=== PATIENT | female | born 1975 | race Caucasian/White ===

== ENCOUNTER 2020-09-15 15:44 | Inpatient (IN) ==
[2020-09-15] MEDS ORDERED: methylPREDNISolone 125 MG/2 ML VIAL IV STA ×2 (17:42→20:19)
[2020-09-15] MEDS ORDERED: SODIUM CHLORIDE 0.9% 1000ML 1,000 ML IV SCH (17:45)
[2020-09-15] MEDS ORDERED: ALBUT/IPRATROP 3MG/0.5MG NEB 3 ML VIAL NEB STA (17:45)
[2020-09-15 18:29] LABS: Basophils # (auto) 0.01 K/uL (0-0.2); Basophils % (auto) 0.1 %; Hematocrit (blood only) 43.5 % (37-47); Hemoglobin 14.4 g/dL (12.0-16.0); Immature Granulocytes # (auto) 0.05 K/uL (0.00-0.02); Immature Granulocytes % (auto) 0.3 %; Lymphocytes # (auto) 1.14 K/uL (1.2-3.4); Lymphocytes % (auto) 6.3 %; Mean Corpuscular Hemoglobin 29.2 pg (25-34); Mean Corpuscular Hgb Conc 33.1 g/dL (32-36); Mean Corpuscular Volume 88.2 fL (80-100); Mean Platelet Volume 10.7 fL (7.4-10.4); Monocytes % (auto) 3.3 %; Neutrophils # (auto) 16.18 K/uL (1.4-6.5); Platelet Count 317 K/uL (130-400); RDW Standard Deviation 48.4 fL (36.4-46.3); Red Blood Count 4.93 M/uL (4.2-5.4); White Blood Count 17.98 K/uL (4.8-10.8)
[2020-09-15 18:38] LABS: Influenza A virus by PCR Negative (Negative); Influenza B virus by PCR Negative (Negative)
[2020-09-15] MEDS ORDERED: AMPICILLIN/SULBACTAM SOD 3,000 MG in 0.9 % SODIUM CHLORIDE 100 ML IV STA ×2 (18:42→20:16)
[2020-09-15 18:48] LABS: Albumin Level 3.2 gm/dl (3.4-5.0); BUN Creatinine Ratio 16.6 (10-20); Calcium 9.4 mg/dl (8.5-10.1); Creatinine Clr Calc Pharmacy 145.6 ml/min; Est GFR (African American) 104.8 ml/min; Est GFR (Non-African American) 90.4 ml/min; Magnesium 2.2 mg/dl (1.8-2.4); Potassium 4.1 mmol/L (3.5-5.1)
[2020-09-15 18:51] LABS: Albumin Globulin Ratio 0.7 (0.9-2); Bilirubin,Total 0.3 mg/dl (0.2-1); Globulin 4.3 gm/dl (2.5-4.0); Total Protein 7.5 gm/dl (6.4-8.2)
--- NOTE | 2020-09-15 19:10 | Emergency Department Note ---
History of Present Illness General Chief complaint: Shortness of Breath/Dyspnea Stated complaint: SOB, CT SCAN SHOWED INFECTION, SENT BY Time Seen by Provider: 09/15/20 17:40 History of Present Illness This 44-year-old female patient presents to the emergency department today at the recommendation of her primary care provider for admission to the hospital due to asthma exacerbation and consolidations noted on outpatient CT imaging. The patient states 2 days ago, she developed wheezing and shortness of breath. Her symptoms have been progressively worsening and she was seen at [facility] last evening. There, she had a chest x-ray completed as well as nebulizers and Decadron given. She was started on prednisone to be taken as an outpatient burst. The patient is already on Augmentin for the past 24 hours due to sinus infection. The patient reports ongoing wheezing and dyspnea. She saw her PCP today and had outpatient CT angiogram completed which was concerning for consolidation in the left upper lobe. Because of this finding, the patient was referred to the emergency department for "multiple doses of steroids they can give in the hospital but I cannot take at home since I am already on 60 mg prednisone". The patient does not have a nebulizer at home and has not noticed significant improvement in her wheezing and asthma exacerbations in the past with nebulizers. She has been taking all of her inhalers as directed. She denies associated chest pain. No numbness, tingling, weakness. Home Medications Medication Instructions Recorded Confirmed Type albuterol sulfate 90 mcg/actuation 2 puff INHALATION Q4H PRN gm 10/21/18 09/15/20 History aerosol inhaler amoxicillin 875 mg-potassium 1 tab PO BID 09/15/20 09/15/20 History clavulanate 125 mg tablet diclofenac sodium 75 mg 75 mg PO BID PRN 09/15/20 09/15/20 History tablet,delayed release duloxetine 60 mg capsule,delayed 60 mg PO DAILY 09/15/20 09/15/20 History release hydrochlorothiazide 25 mg tablet 25 mg PO DAILY 09/15/20 09/15/20 History mometasone-formoterol HFA 200 2 puff INHALATION BID 09/15/20 09/15/20 History mcg-5 mcg/actuation aerosol inhaler (Dulera) prednisone 20 mg tablet 60 mg PO DAILY 09/15/20 09/15/20 History tiotropium bromide 2.5 2 puff INHALATION DAILY 09/15/20 09/15/20 History mcg/actuation mist for inhalation (Spiriva Respimat) Allergies Allergy/AdvReac Type Severity Reaction Status Date / Time Penicillins AdvReac Intermediate NAUSEATED Verified 09/15/20 18:24 Past Med/Surg History Medical History Anxiety Asthma Depression GERD (gastroesophageal reflux disease) History of gestational diabetes History of varicella Hypertension Family History (Updated 05/15/19 @ 13:27 by Chandrika Duke, INTERFACE DEVELOPER) Mother Heart disease Cervical cancer Grandmother (Maternal) Breast cancer Social History Smoking Status: Current every day smoker Second Hand Exposure: Yes; Do You Dip or Chew Tobacco: No; Tobacco Cessation Education Requested by Patient: No Hx Alcohol Use: Yes Hx Substance Use: No Preferred Language: Frisian Communication Ability: Effective Watch Dial Maker Required: No Beliefs That Will Affect Care: None Current Living Situation: Family Other Information That Helps Us Care for You: No Feels Safe at Home: Yes Safety Concerns: Feels Safe At This Time Assistive Devices: None Review of Systems A total of 10 systems reviewed and were otherwise negative Physical Exam Vital Signs Vital Signs - 24 hr 09/15/20 15:50 09/15/20 15:57 09/15/20 18:16 Temperature 37.1 C Temperature Source Temporal Artery Scan Pulse Rate 96 H 89 Pulse Rate [Exercises] Pulse Rate [Recovery] Pulse Rate [Resting] Pulse Rate from SpO2 Sensor 89 Respiratory Rate 26 H 22 Respiratory Rate [Exercises] Respiratory Rate [Recovery] Respiratory Rate [Resting] Respiratory Effort / Characteristics SOB on Exertion Spontaneous SOB on Exertion Respiratory Depth Shallow Shallow Respiratory Pattern Tachypnea Tachypnea Blood Pressure 172/105 H 153/84 H Blood Pressure Mean 127 107 Pulse Oximetry 94 91 Pulse Oximetry [Exercises] Pulse Oximetry [Recovery] Pulse Oximetry [Resting] Oxygen Delivery Method Room Air Sepsis Recent Fever Within 48 Hours No Sepsis New/Unexplained Change in Mental Status No Sepsis Action Taken by Nursing No Action Required 09/15/20 18:20 09/15/20 18:21 09/15/20 18:30 Temperature Temperature Source Pulse Rate 86 Pulse Rate [Exercises] Pulse Rate [Recovery] Pulse Rate [Resting] Pulse Rate from SpO2 Sensor 88 Respiratory Rate 22 Respiratory Rate [Exercises] Respiratory Rate [Recovery] Respiratory Rate [Resting] Respiratory Effort / Characteristics Spontaneous Respiratory Depth Normal Respiratory Pattern Regular Blood Pressure 153/104 H Blood Pressure Mean 120 Pulse Oximetry 93 Pulse Oximetry [Exercises] Pulse Oximetry [Recovery] Pulse Oximetry [Resting] Oxygen Delivery Method Room Air Sepsis Recent Fever Within 48 Hours Sepsis New/Unexplained Change in Mental Status Sepsis Action Taken by Nursing 09/15/20 18:41 09/15/20 18:44 09/15/20 19:00 Temperature Temperature Source Pulse Rate 80 88 90 Pulse Rate [Exercises] Pulse Rate [Recovery] Pulse Rate [Resting] Pulse Rate from SpO2 Sensor 79 90 Respiratory Rate 16 22 17 Respiratory Rate [Exercises] Respiratory Rate [Recovery] Respiratory Rate [Resting] Respiratory Effort / Characteristics Respiratory Depth Respiratory Pattern Blood Pressure 161/107 H 161/107 H 169/102 H Blood Pressure Mean 125 125 124 Pulse Oximetry 94 93 94 Pulse Oximetry [Exercises] Pulse Oximetry [Recovery] Pulse Oximetry [Resting] Oxygen Delivery Method Room Air Sepsis Recent Fever Within 48 Hours Sepsis New/Unexplained Change in Mental Status Sepsis Action Taken by Nursing 09/15/20 19:06 09/15/20 19:14 09/15/20 19:30 Temperature Temperature Source Pulse Rate 106 H 88 Pulse Rate [Exercises] 116 H Pulse Rate [Recovery] 109 H Pulse Rate [Resting] 110 H Pulse Rate from SpO2 Sensor 100 H 88 Respiratory Rate 18 21 Respiratory Rate [Exercises] 20 Respiratory Rate [Recovery] 18 Respiratory Rate [Resting] 18 Respiratory Effort / Characteristics Respiratory Depth Respiratory Pattern Blood Pressure 148/112 H 137/81 Blood Pressure Mean 124 99 Pulse Oximetry 93 90 Pulse Oximetry [Exercises] 88 L Pulse Oximetry [Recovery] 95 Pulse Oximetry [Resting] 96 Oxygen Delivery Method Room Air Sepsis Recent Fever Within 48 Hours Sepsis New/Unexplained Change in Mental Status Sepsis Action Taken by Nursing 09/15/20 20:00 Temperature Temperature Source Pulse Rate 88 Pulse Rate [Exercises] Pulse Rate [Recovery] Pulse Rate [Resting] Pulse Rate from SpO2 Sensor 89 Respiratory Rate 20 Respiratory Rate [Exercises] Respiratory Rate [Recovery] Respiratory Rate [Resting] Respiratory Effort / Characteristics Respiratory Depth Respiratory Pattern Blood Pressure 156/87 H Blood Pressure Mean 110 Pulse Oximetry 92 Pulse Oximetry [Exercises] Pulse Oximetry [Recovery] Pulse Oximetry [Resting] Oxygen Delivery Method Sepsis Recent Fever Within 48 Hours Sepsis New/Unexplained Change in Mental Status Sepsis Action Taken by Nursing VITALS: Vitals are noted on the nurse's note and reviewed by myself. Vital signs s at rest, but O2 saturation drops to 88% with ambulatory trial. GENERAL: This is a 44-year-old white female, in no acute distress, nondiaphoretic, well-developed well-nourished. SKIN: The skin was without rashes, erythema, edema, or bruising. There is no te nting of the skin. Capillary refill less than 2 seconds. HEAD: Normocephalic atraumatic. EYES: Conjunctivae without injection, sclerae without icterus. NECK: Supple without nuchal rigidity. No lymphadenopathy. No thyromegaly. Cervical spine is nontender. No JVD. No stridor. HEART: Regular rate and rhythm without murmurs gallops or rubs. LUNGS: Diffuse wheezing and rhonchi throughout. No retractions or accessory muscle use. Patient able to speak in full sentences without difficulty. ABDOMEN: Positive bowel sounds x 4. Normal tympanic percussion. Soft, nontender, without masses or organomegaly. No guarding or rebound tenderness. MUSCULOSKELETAL: No muscle atrophy, erythema, or edema noted. Full range of motion without joint tenderness in all extremities. No tenderness to palpation. Normal gait. Strength 5/5 throughout. NEURO: Patient was alert and oriented to person place and time. No focal neurological deficits. Course Course The patient was seen and evaluated as above. Outpatient imaging reviewed. An order was placed for continuous cardiac monitoring. The monitor shows a normal sinus rhythm at a rate of 87 bpm. IV access obtained, labs drawn. Patient medicated with IV fluids, Solu-Medrol, DuoNeb treatment, and Unasyn. Labs reviewed by myself. I discussed the findings with the patient at bedside. Ambulatory trial completed I discussed the case with LISA Loco with [facility]. He will see and evaluate the patient for admission. Please see his dictation regarding final disposition and plan. Administered Medications Ceftriaxone Sodium 2,000 mg/ (Dextrose) 70 mls @ 100 mls/hr IV Q24H [facility]; Protocol Stop: 09/22/20 21:59 Last Admin: 09/15/20 22:26 Dose: 100 mls/hr Documented by: [id number] Discontinued Medications Albuterol (Albut/Ipratrop 3mg/0.5mg Neb 3 Ml Vial) 3 ml NEB NOW STA Stop: 09/15/20 17:46 Last Admin: 09/15/20 17:56 Dose: 3 ml Documented by: [id number] Azithromycin (Azithromycin 250 Mg Tab) 500 mg PO NOW ONE Stop: 09/15/20 20:17 Last Admin: 09/15/20 21:26 Dose: 500 mg Documented by: [id number] Sodium Chloride (Nss 1000ml) 1,000 mls @ 999 mls/hr IV .Q1H1M DOMINIQUE Stop: 09/15/20 18:45 Last Infusion: 09/15/20 19:36 Dose: 0 mls/hr Documented by: [id number] Admin: 09/15/20 18:13 Dose: 999 mls/hr Documented by: [id number] Ampicillin Sodium/Sulbactam Sodium 3,000 mg/ Sodium Chloride 108 mls @ 200 mls/hr IV NOW STA; Protocol Stop: 09/15/20 19:14 Last Infusion: 09/15/20 20:39 Dose: 0 mls/hr Documented by: [id number] Admin: 09/15/20 19:39 Dose: 200 mls/hr Documented by: [id number] Methylprednisolone (Methylprednisolone 125 Mg/2 Ml Vial) 125 mg IV NOW STA Stop: 09/15/20 17:43 Last Admin: 09/15/20 18:13 Dose: 125 mg Documented by: [id number] Medical Decision Making Differential Diagnosis Reactive airway disease, pneumonia, pneumothorax, COPD, CHF, infections, cardiac ischemia, pulmonary embolism, musculoskeletal, gastrointestinal, as well as other pathologies. Medical Records Attestation: I reviewed the patient's medical records. Home Medications Current Medication List: was personally reviewed by me Laboratory Data Leukocytosis of 17,000. No anemia or thrombocytopenia. Renal, hepatic function electrolytes without significant abnormality. Procalcitonin negative. Inf luenza and COVID-19 testing negative. ESR 54. CRP 4.71. Result diagrams: 09/15/20 18:15 09/15/20 18:15 Lab Results 09/15/20 09/15/20 09/15/20 Range/Units 18:05 18:05 18:05 WBC (4.8-10.8) K/uL RBC (4.2-5.4) M/uL Hgb (12.0-16.0) g/dL Hct (37-47) % MCV (80-100) fL MCH (25-34) pg MCHC (32-36) g/dL RDW Std Deviation (36.4-46.3) fL RDW Coeff of Elsy (11.5-14.5) % Plt Count (130-400) K/uL MPV (7.4-10.4) fL Immature Gran % (Auto) % Neut % (Auto) % Lymph % (Auto) % [place] % (Auto) % Eos % (Auto) % Baso % (Auto) % Neut # (Auto) (1.4-6.5) K/uL Lymph # (Auto) (1.2-3.4) K/uL [place] # (Auto) (0.11-0.59) K/uL Eos # (Auto) (0-0.5) K/uL Baso # (Auto) (0-0.2) K/uL Immature Gran # (Auto) (0.00-0.02) K/uL ESR (0-20) mm/hr Sodium (136-145) mmol/L Potassium (3.5-5.1) mmol/L Chloride (98-107) mmol/L Carbon Dioxide (21-32) mmol/L Anion Gap (3-11) BUN (7-18) mg/dl Creatinine (0.6-1.2) mg/dl Est Cr Clr Drug Dosing ml/min Est GFR ( Amer) ml/min Est GFR (Non-Af Amer) ml/min BUN/Creatinine Ratio (10-20) Glucose (70-99) mg/dl Calcium (8.5-10.1) mg/dl Magnesium (1.8-2.4) mg/dl Total Bilirubin (0.2-1) mg/dl AST (15-37) U/L ALT (12-78) U/L Alkaline Phosphatase (45-117) U/L C-Reactive Protein (0-0.29) mg/dl Total Protein (6.4-8.2) gm/dl Albumin (3.4-5.0) gm/dl Globulin (2.5-4.0) gm/dl Albumin/Globulin Ratio (0.9-2) Procalcitonin (0-0.5) ng/ml COVID-19 Eval Order Covid19 at [facility] SARS-CoV-2 (PCR) NEGATIVE (Negative) Influ A Molecular Assay Negative (Negative) Influ B Molecular Assay Negative (Negative) 09/15/20 09/15/20 09/15/20 Range/Units 18:15 18:15 18:15 WBC 17.98 H (4.8-10.8) K/uL RBC 4.93 (4.2-5.4) M/uL Hgb 14.4 (12.0-16.0) g/dL Hct 43.5 (37-47) % MCV 88.2 (80-100) fL MCH 29.2 (25-34) pg MCHC 33.1 (32-36) g/dL RDW Std Deviation 48.4 H (36.4-46.3) fL RDW Coeff of Elsy 15.0 H (11.5-14.5) % Plt Count 317 (130-400) K/uL MPV 10.7 H (7.4-10.4) fL Immature Gran % (Auto) 0.3 % Neut % (Auto) 90.0 % Lymph % (Auto) 6.3 % [place] % (Auto) 3.3 % Eos % (Auto) 0.0 % Baso % (Auto) 0.1 % Neut # (Auto) 16.18 H (1.4-6.5) K/uL Lymph # (Auto) 1.14 L (1.2-3.4) K/uL [place] # (Auto) 0.60 H (0.11-0.59) K/uL Eos # (Auto) 0.00 (0-0.5) K/uL Baso # (Auto) 0.01 (0-0.2) K/uL Immature Gran # (Auto) 0.05 H (0.00-0.02) K/uL ESR 54 H (0-20) mm/hr Sodium 134 L (136-145) mmol/L Potassium 4.1 (3.5-5.1) mmol/L Chloride 102 (98-107) mmol/L Carbon Dioxide 27 (21-32) mmol/L Anion Gap 5.0 (3-11) BUN 13 (7-18) mg/dl Creatinine 0.79 (0.6-1.2) mg/dl Est Cr Clr Drug Dosing 145.6 ml/min Est GFR ( Amer) 104.8 ml/min Est GFR (Non-Af Amer) 90.4 ml/min BUN/Creatinine Ratio 16.6 (10-20) Glucose 127 H (70-99) mg/dl Calcium 9.4 (8.5-10.1) mg/dl Magnesium 2.2 (1.8-2.4) mg/dl Total Bilirubin 0.3 (0.2-1) mg/dl AST 10 L (15-37) U/L ALT 24 (12-78) U/L Alkaline Phosphatase 78 (45-117) U/L C-Reactive Protein 4.71 H (0-0.29) mg/dl Total Protein 7.5 (6.4-8.2) gm/dl Albumin 3.2 L (3.4-5.0) gm/dl Globulin 4.3 H (2.5-4.0) gm/dl Albumin/Globulin Ratio 0.7 L (0.9-2) Procalcitonin (0-0.5) ng/ml COVID-19 Eval Order SARS-CoV-2 (PCR) (Negative) Influ A Molecular Assay (Negative) Influ B Molecular Assay (Negative) 09/15/20 Range/Units 18:15 WBC (4.8-10.8) K/uL RBC (4.2-5.4) M/uL Hgb (12.0-16.0) g/dL Hct (37-47) % MCV (80-100) fL MCH (25-34) pg MCHC (32-36) g/dL RDW Std Deviation (36.4-46.3) fL RDW Coeff of Elsy (11.5-14.5) % Plt Count (130-400) K/uL MPV (7.4-10.4) fL Immature Gran % (Auto) % Neut % (Auto) % Lymph % (Auto) % [place] % (Auto) % Eos % (Auto) % Baso % (Auto) % Neut # (Auto) (1.4-6.5) K/uL Lymph # (Auto) (1.2-3.4) K/uL [place] # (Auto) (0.11-0.59) K/uL Eos # (Auto) (0-0.5) K/uL Baso # (Auto) (0-0.2) K/uL Immature Gran # (Auto) (0.00-0.02) K/uL ESR (0-20) mm/hr Sodium (136-145) mmol/L Potassium (3.5-5.1) mmol/L Chloride (98-107) mmol/L Carbon Dioxide (21-32) mmol/L Anion Gap (3-11) BUN (7-18) mg/dl Creatinine (0.6-1.2) mg/dl Est Cr Clr Drug Dosing ml/min Est GFR ( Amer) ml/min Est GFR (Non-Af Amer) ml/min BUN/Creatinine Ratio (10-20) Glucose (70-99) mg/dl Calcium (8.5-10.1) mg/dl Magnesium (1.8-2.4) mg/dl Total Bilirubin (0.2-1) mg/dl AST (15-37) U/L ALT (12-78) U/L Alkaline Phosphatase (45-117) U/L C-Reactive Protein (0-0.29) mg/dl Total Protein (6.4-8.2) gm/dl Albumin (3.4-5.0) gm/dl Globulin (2.5-4.0) gm/dl Albumin/Globulin Ratio (0.9-2) Procalcitonin < 0.05 (0-0.5) ng/ml COVID-19 Eval Order SARS-CoV-2 (PCR) (Negative) Influ A Molecular Assay (Negative) Influ B Molecular Assay (Negative) Imaging Data Radiologist's Impression: Outpatient CT imaging: CT ANGIOGRAPHY OF THE CHEST, PULMONARY EMBOLUS PROTOCOL CLINICAL HISTORY: Shortness of breath. COMPARISON STUDY: Chest CT November 15, 2014. Chest CT August 01, 2018. TECHNIQUE: Following IV administration of 117 mL of Optiray, helical axial images of the chest were obtained utilizing the pulmonary embolus protocol. Maximal intensity projections and sagittal and coronal reformats were viewed on an independent 3D workstation. IV contrast was administered without complication. Automated exposure control was utilized for the study. A dose lowering technique was utilized adhering to the principles of ALARA. CT DOSE: 683.69 mGycm FINDINGS: No pulmonary emboli are identified although segmental subsegmental pulmonary arteries are suboptimally assessed on this examination, particularly within the lower lobes. There is no thoracic aortic dissection. Size of the heart is normal. There is no pericardial effusion. No pathologically enlarged thoracic lymph nodes are present. There is no pneumothorax or pleural effusion. Note is made of mild groundglass opacities within the lungs with upper lobe predominance. There is no cavitation. Central airways are patent. IMPRESSION: 1. No pulmonary emboli identified although segmental and subsegmental pulmonary arteries suboptimally assessed on this exam due to artifact. 2. Mild upper lobe predominant groundglass opacities within the lungs which are nonspecific but favor an infectious etiology. ACT 112: Negative or not required by law. Electronically signed by: Laurent Wilson M.D. 09/15/2020 2:29 PM ECG Data Attestation: I personally reviewed and interpreted this ECG as follows: Indication: + SOB/dyspnea Rate (beats per minute): 87 Rhythm: + normal sinus ECG [place]: + Normal ECG ST segments: no ST depression, no ST elevation or no T-wave inversions Comparison ECG Date: from (08/01/2018) Change: no significant change Blood Pressure Blood Pressure Findings: Elevated blood pressure MDM Narrative This 44-year-old female patient presents to the emergency department today for evaluation of asthma exacerbation. Patient was found to have groundglass opacities in the upper lobes on outpatient CTA. Unclear viral versus bacterial etiology. The patient is hypoxic with ambulation. She has been complaining of sputum production and worsening dyspnea. Her symptoms did not significantly improve with Solu-Medrol and DuoNeb treatment. She will be admitted to the hospitalist service for ongoing management and care of her illness. Please see their dictation. The chart was completed utilizing [employer] technology Speech voice recognition software. Grammatical errors, random word insertions, pronoun errors, and incomplete sentences are an occasional consequence of this system due to software limitations, ambient noise, and hardware issues. Any formal questions or concerns about the content, text, or information contained within the body of th is dictation should be directly addressed to the provider for clarification. Impression & Plan Pneumonia, Asthma Discharge Plan Visit Data Chief Complaint: Shortness of Breath/Dyspnea Stated Complaint: SOB, CT SCAN SHOWED INFECTION, SENT BY DR MASTERSON Provider: Ranjeet Fleming ED Midlevel Provider: Sakina Olivares Discharge Problem: Pneumonia, Asthma Patient Disposition: Admitted As Inpatient Discharge Instructions Interventions: ED Discharge Assessment Last Done: 09/15/20 21:22
[2020-09-15] MEDS ORDERED: AZITHROMYCIN 250 MG TAB PO ONE (20:16)
[2020-09-15] MEDS ORDERED: AMPICILLIN/SULBACTAM SOD 3,000 MG in 0.9 % SODIUM CHLORIDE 100 ML IV SCH (20:30)
--- NOTE | 2020-09-15 20:43 | History & Physical Report ---
Date of Service September 15, 2020 Assessment & Plan (1) Pneumonia: Plan: with her dyspnea and ground glass opacities in the upper lobes, however mild with sputum production and hypoxia will cover for for CAP and atypical - CAP- Rocephin with Azithromycin for atypical - Legionella antigen sent - COVID negative with COVID vaccinated - Influenza negative - If no improvement consider adding RSV - Patient denies any travel - WBC 17 with NLR 8:1 - ESR- CRP sent - PCT pending (2) Asthma: Plan: As - exacerbation in the setting of viral vs. bacterial infection - Continue inhalers scheduled with prn in between - Methylpred 40 iv q8 can increase dose or frequency if needed (3) Obesity: Plan: Morbid obesity Continue with weight loss efforts as outpatient (4) HTN (hypertension): Plan: Contine with HCTZ - Goal <140 continue with PCP History of Present Illness Primary Care Provider: Brendan Dobbs 44 YOF with past medical history of: Asthma, obesity, anxiety/depression, HTN. Patient comes in to the ED today at the referral from her PCP secondary to dyspnea and further evaluation. Patient reports that originally she felt she had a cold about a 3-5 days ago that consisted of chills, congestion, cough. She continued to remain with a cough and dyspnea and went to [facility] where she reports she had a COVID test performed and it was negative. She was started with nebulizers, given Decadron, magnesium, and started on Augmentin. The patient reports that she remained conversationally dyspneic and trouble catching her breath and continued cough. Her PCP ordered a CT scan that was performed here and then referred her to the ER for ground-glass opacities noted noted in upper lobes without cavitation. In the EMD the patient was given 125mg of IV solumederol and started on Unasyn and given a nebulizer of albuterol. The patient continued to be dyspneic. Hospitalist team was notified for admission. Patient states that she feels better than she did this morning in regards to her breathing and wheezing. She is able to talk in full sentences now. Patient will be admitted for treatment of pneumonia and continue work-up. She has had blood cultures drawn, continue steroids as she was on 60mg Prednisone as outpatient. She endorses using her inhalers. She has a dog and cat, denies any tick bites or travel. Patient does have her COVID vaccine and is NEGATIVE on her COVID test on admission. Allergies Allergy/AdvReac Type Severity Reaction Status Date / Time Penicillins AdvReac Intermediate NAUSEATED Verified 09/15/20 18:24 Home Medications Medication Instructions Recorded Confirmed Type albuterol sulfate 90 mcg/actuation 2 puff INHALATION Q4H PRN gm 10/21/18 09/15/20 History aerosol inhaler amoxicillin 875 mg-potassium 1 tab PO BID 09/15/20 09/15/20 History clavulanate 125 mg tablet diclofenac sodium 75 mg 75 mg PO BID PRN 09/15/20 09/15/20 History tablet,delayed release duloxetine 60 mg capsule,delayed 60 mg PO DAILY 09/15/20 09/15/20 History release hydrochlorothiazide 25 mg tablet 25 mg PO DAILY 09/15/20 09/15/20 History mometasone-formoterol HFA 200 2 puff INHALATION BID 09/15/20 09/15/20 History mcg-5 mcg/actuation aerosol inhaler (Dulera) prednisone 20 mg tablet 60 mg PO DAILY 09/15/20 09/15/20 History tiotropium bromide 2.5 2 puff INHALATION DAILY 09/15/20 09/15/20 History mcg/actuation mist for inhalation (Spiriva Respimat) Past Med/Surg History Medical History Anxiety Asthma Depression GERD (gastroesophageal reflux disease) History of gestational diabetes History of varicella Hypertension Family History (Updated 05/15/19 @ 13:27 by Chandrika Duke, [employer]) Mother Heart disease Cervical cancer Grandmother (Maternal) Breast cancer Social History Smoking Status: Current every day smoker Second Hand Exposure: Yes; Do You Dip or Chew Tobacco: No; Tobacco Cessation Education Requested by Patient: No Hx Alcohol Use: Yes Hx Substance Use: No Preferred Language: [place] Zeal[place] Communication Ability: Effective Metallographer Required: No Beliefs That Will Affect Care: None marital status: Single Current Living Situation: Family Other Information That Helps Us Care for You: No Feels Safe at Home: Yes Safety Concerns: Feels Safe At This Time Assistive Devices: Oxygen - Continuous Review of Systems Review of Systems: REVIEW OF SYSTEMS: Constitutional: (+) sweats and chills Eyes: No diplopia, no worsening or blurred vision ENT: normal hearing, no trouble swallowing Respiratory: (+) cough, sputum, dyspnea at rest or on exertion, wheeze and tightness Cardiovascular: No chest pain, or palpitations Abdomen: No pain, nausea, vomiting, diarrhea or constipation Musculoskeletal: (+) knee pain, NO calf pain, swelling Neurologic: No weakness, numbness/tingling, or balance problems Psychiatric: No anxiety or depression Skin: No rash or itch Physical Exam Physical Exam: PHYSICAL EXAM: General: awake, alert, no apparent distress Head: Normocephalic, atraumatic ENT: PERRL, EOMI, no pharyngeal exudate, mucous membranes moist Neuro: AAO x 3, speech clear and appropriate, strength intact bilaterally 5/5, sensation intact and equal all extremities and dermatomes, no pronator drift Chest: equal rise and fall of the chest, no accessory muscle use, scattered crackles upper airways, inspiratory wheeze anteriorly, on room air, cough, Patient reports sputum as thick white to green Cardiac: Regular rate and rhythm, telemetry reviewed-NSR, skin warm dry, cap refill <3 seconds, peripheral pulses +2 no JVD, no murmur. trace lower extremity edema bilaterally GI: NABS x 4 quadrants, soft, nontender to palpation, no rebound, guarding or tenderness : Spontaneously voiding, no pain, no CVA tenderness, Extremities: Normal inspection, no peripheral edema or erythema, calfs nontender to palpation Psych: Normal mood and affect Skin: no rash or erythema Results & Data Results & Data ([facility]) Vital Signs (Past 12 Hours) Vital Signs Temp Pulse Pulse Pulse Pulse Resp Resp 09/15/20 19:06 116 H 109 H 110 H 20 09/15/20 18:44 88 22 09/15/20 18:41 80 16 09/15/20 18:30 86 22 09/15/20 18:16 89 22 09/15/20 15:50 37.1 C 96 H 26 H Resp Resp BP Pulse Ox Pulse Ox Pulse Ox Pulse Ox 09/15/20 19:06 18 18 88 L 95 96 09/15/20 18:44 161/107 H 93 09/15/20 18:41 161/107 H 94 09/15/20 18:30 153/104 H 93 09/15/20 18:16 153/84 H 91 09/15/20 15:50 172/105 H 94 Laboratory Results Abnormal lab results 09/15/20 09/15/20 Range/Units 18:15 18:15 WBC 17.98 H (4.8-10.8) K/uL RDW Std Deviation 48.4 H (36.4-46.3) fL RDW Coeff of Elsy 15.0 H (11.5-14.5) % MPV 10.7 H (7.4-10.4) fL Neut # (Auto) 16.18 H (1.4-6.5) K/uL Lymph # (Auto) 1.14 L (1.2-3.4) K/uL [place] # (Auto) 0.60 H (0.11-0.59) K/uL Immature Gran # (Auto) 0.05 H (0.00-0.02) K/uL Sodium 134 L (136-145) mmol/L Glucose 127 H (70-99) mg/dl AST 10 L (15-37) U/L Albumin 3.2 L (3.4-5.0) gm/dl Globulin 4.3 H (2.5-4.0) gm/dl Albumin/Globulin Ratio 0.7 L (0.9-2) Diagnostic Findings CT ANGIOGRAPHY OF THE CHEST, PULMONARY EMBOLUS PROTOCOL CLINICAL HISTORY: Shortness of breath. COMPARISON STUDY: Chest CT November 15, 2014. Chest CT August 01, 2018. TECHNIQUE: Following IV administration of 117 mL of Optiray, helical axial images of the chest were obtained utilizing the pulmonary embolus protocol. Maximal intensity projections and sagittal and coronal reformats were viewed on an independent 3D workstation. IV contrast was administered without complication. Automated exposure control was utilized for the study. A dose lowering technique was utilized adhering to the principles of ALARA. CT DOSE: 683.69 mGycm FINDINGS: No pulmonary emboli are identified although segmental subsegmental pulmonary arteries are suboptimally assessed on this examination, particularly within the lower lobes. There is no thoracic aortic dissection. Size of the heart is normal. There is no pericardial effusion. No pathologically enlarged thoracic lymph nodes are present. There is no pneumothorax or pleural effusion. Note is made of mild groundglass opacities within the lungs with upper lobe predominance. There is no cavitation. Central airways are patent. IMPRESSION: 1. No pulmonary emboli identified although segmental and subsegmental pulmonary arteries suboptimally assessed on this exam due to artifact. 2. Mild upper lobe predominant groundglass opacities within the lungs which are nonspecific but favor an infectious etiology. ACT 112: Negative or not required by law. Electronically signed by: Laurent Wilson M.D. 09/15/2020 2:29 PM Medications Administered Discontinued Medications Albuterol (Albut/Ipratrop 3mg/0.5mg Neb 3 Ml Vial) 3 ml NEB NOW STA Stop: 09/15/20 17:46 Last Admin: 09/15/20 17:56 Dose: 3 ml Documented by: [id number] Sodium Chloride (Nss 1000ml) 1,000 mls @ 999 mls/hr IV .Q1H1M DOMINIQUE Stop: 09/15/20 18:45 Last Infusion: 09/15/20 19:36 Dose: 0 mls/hr Documented by: [id number] Admin: 09/15/20 18:13 Dose: 999 mls/hr Documented by: [id number] Ampicillin Sodium/Sulbactam Sodium 3,000 mg/ Sodium Chloride 108 mls @ 200 mls/hr IV NOW STA; Protocol Stop: 09/15/20 19:14 Last Infusion: 09/15/20 20:39 Dose: 0 mls/hr Documented by: [id number] Admin: 09/15/20 19:39 Dose: 200 mls/hr Documented by: [id number] Methylprednisolone (Methylprednisolone 125 Mg/2 Ml Vial) 125 mg IV NOW STA Stop: 09/15/20 17:43 Last Admin: 09/15/20 18:13 Dose: 125 mg Documented by: [id number] ECG Additional Comments: Normal sinus rhythm Low voltage QRS Borderline ECG When compared with ECG of 01-AUG-2018 12:52, No significant change was found Code Status & VTE Plan Code Status CODE: FULL VTE: SCD's, ambulation VTE Prophylaxis Plan VTE Prophylaxis will be ordered: No Supervising Physician Co-Signing Physician Notes Attending addendum: I have physically seen this patient, have supervised the NICOLE's activities, and agree with the H&P unless as otherwise noted. Assessment and Plan: Pneumonia, bilateral upper lobes/asthma- Ceftriaxone 2 g IV daily Azithromycin 5 mg IV daily Methylprednisolone 40 mg IV every 8 hours, after receiving 125 mg IV in ED Duonebs every 4 hours while awake and every 2 hours when necessary. COVID-19 negative and influenza negative Send urine Legionella antigen and Chlamydia antibodies Remaining orders and notations as noted PG Care Time/CCT Total # of Minutes Spent Total Time Spent with Patient: Total time spent is greater than 50% in coordination of care (as documented) at patient's floor/unit and/or counseling patient: Coding Level of Care Code 01257 Initial Inpt Care Lvl 2 Diagnoses Pneumonia J18.9 Asthma J45.909 Obesity E66.01; Z68.43 Body mass index: BMI 50.0-59.9 Obesity classification: adult class 3 (BMI >= 40) Obesity type: due to excess calories Serious obesity comorbidity presence: unspecified whether serious comorbidity present HTN (hypertension) I10 (1) Obesity Body mass index: BMI 50.0-59.9 Obesity classification: adult class 3 (BMI >= 40) Obesity type: due to excess calories Serious obesity comorbidity presence: unspecified whether serious comorbidity present Qualified Code(s): E66.01 - Morbid (severe) obesity due to excess calories; Z68.43 - Body mass index [BMI] 50.0-59.9, adult
[2020-09-15] MEDS ORDERED: DICLOFENAC SODIUM 75 MG TABCR PO PRN (21:53)
[2020-09-15] MEDS ORDERED: ACETAMINOPHEN 325 MG TAB PO PRN (21:53)
[2020-09-15] MEDS ORDERED: ALBUTEROL HFA 8 GM INHALER INH PRN (21:53)
[2020-09-15 22:21] LABS: C Reactive Protein 4.71 mg/dl (0-0.29)
[2020-09-15] MEDS: cefTRIAXone SODIUM 2,000 MG in DEXTROSE 5% 50 ML IV SCH (22:26)
[2020-09-15 23:38] LABS: Appearance Urine Clear (Clear); Bacteria Urine Automated Negative (Negative); Bilirubin Urine Negative (Negative); Blood Urine 3+ (Negative); Color Urine Yellow; Epithelial Cell Urine Auto >30 /lpf (0-5); Glucose Urine UA Negative (Negative); Ketones Urine Negative (Negative); Leukocyte Esterase Urine Trace (Negative); Nitrite Urine Negative (Negative); Protein Urine Negative (Negative); RBC Urine Automated >30 /hpf (0-4); Specific Gravity Urine 1.025 (1.000-1.030); Urobilinogen Urine Negative (Negative)
[2020-09-15] MEDS: MELATONIN 3 MG TAB PO PRN (23:42)
[2020-09-16] MEDS: ALBUTEROL 0.083% NEBU SOLN 3 ML VIAL NEB SCH ×4 (00:30→19:25)
[2020-09-16] MEDS ORDERED: ALBUTEROL 0.5% NEB SOLN 2.5 MG/0.5 ML VIAL NEB SCH (01:00)
[2020-09-16] MEDS: methylPREDNISolone 40 MG in SYRINGE 0 ML IV SCH ×3 (02:17→18:15)
[2020-09-16 06:38] LABS: Hematocrit (blood only) 42.5 % (37-47); Hemoglobin 13.8 g/dL (12.0-16.0); Immature Granulocytes # (auto) 0.07 K/uL (0.00-0.02); Immature Granulocytes % (auto) 0.4 %; Lymphocytes # (auto) 1.18 K/uL (1.2-3.4); Lymphocytes % (auto) 7.5 %; Mean Corpuscular Hemoglobin 29.1 pg (25-34); Mean Corpuscular Hgb Conc 32.5 g/dL (32-36); Mean Corpuscular Volume 89.5 fL (80-100); Mean Platelet Volume 10.7 fL (7.4-10.4); Monocytes # (auto) 0.37 K/uL (0.11-0.59); Monocytes % (auto) 2.3 %; Neutrophils # (auto) 14.16 K/uL (1.4-6.5); Neutrophils % (auto) 89.8 %; Platelet Count 324 K/uL (130-400); RDW Standard Deviation 49.4 fL (36.4-46.3); Red Blood Count 4.75 M/uL (4.2-5.4); White Blood Count 15.78 K/uL (4.8-10.8)
[2020-09-16 07:15] LABS: BUN Creatinine Ratio 20.9 (10-20); Calcium 9.2 mg/dl (8.5-10.1); Est GFR (African American) 111.6 ml/min; Est GFR (Non-African American) 96.3 ml/min
[2020-09-16 08:06] LABS: Magnesium 2.2 mg/dl (1.8-2.4)
[2020-09-16] MEDS: DULoxetine HCL 60 MG CAP PO SCH (08:56)
[2020-09-16] MEDS: UMECLIDINIUM BROMIDE 62.5MCG/BLISTER 7 PUFFS/INHALER INH SCH (08:56)
[2020-09-16] MEDS: hydroCHLOROthiazide 25 MG TAB PO SCH (08:56)
[2020-09-16] MEDS: FLUTICASONE/VILANTEROL 200/25MCG 14 PUFFS/INHALER INH SCH (08:57)
--- NOTE | 2020-09-16 09:38 | Electrocardiogram Report ---
Test Reason : Blood Pressure : / mmHG Vent. Rate : 087 BPM Atrial Rate : 087 BPM P-R Int : 146 ms QRS Dur : 074 ms QT Int : 346 ms P-R-T Axes : 071 011 031 degrees QTc Int : 416 ms Normal sinus rhythm Low voltage QRS Borderline ECG When compared with ECG of 01-AUG-2018 12:52, No significant change was found Confirmed by Jah Agosto ([id number]) on 09/16/2020 9:37:51 AM Referred By: REFERRED SELF Confirmed By:Jah Agosto
--- NOTE | 2020-09-16 13:07 | Hospitalist Progress Note ---
Date of Service September 16, 2020 Assessment & Plan (1) Pneumonia: Plan: With her dyspnea and ground glass opacities in the upper lobes, however mild with sputum production and hypoxia will cover for for CAP and atypical. - CAP- Rocephin with Azithromycin for atypical - Legionella antigen sent - COVID negative with COVID vaccinated - Influenza negative - If no improvement consider adding RSV - Patient denies any travel - WBC 17 with NLR 8:1 - PCT negative. - Improving with current treatment; will continue. Add pickle valve as previously chest physiotherapy has helped. Will also add guaifenesin. (2) Asthma: Plan: As - exacerbation in the setting of viral vs. bacterial infection - Continue inhalers scheduled with prn in between - Methylpred 40 iv q8 can increase dose or frequency if needed (3) Obesity: Plan: Morbid obesity Continue with weight loss efforts as outpatient (4) HTN (hypertension): Plan: Contine with HCTZ - Goal <140 continue with PCP Admission and Anticipated Discharge Date Admission Date: September 15, 2020 Subjective Still feeling quite short of breath with movement. Less so at rest. Coughing with continued sputum. Reports no fevers/chills, chest pain, abdominal pain, nausea, or vomiting. Physical Exam Constitutional: WD/WN, vitals as above Eyes: EOM intact bilaterally; no conjunctival abnormality ENMT: external ear and nose normal, oropharynx normal Neck: trachea midline, no thyromegaly normal visual inspection Respiratory: + cough; no respiratory distress Auscultation: + wheezes (End expiratory) Cardiovascular: RRR, no murmur, no edema Gastrointestinal (Abdomen): Inspection/Auscultation: abdomen normal to inspection; abdomen not distended Musculoskeletal: no cyanosis or clubbing, extremities motor strength 5/5 Skin: no rashes, warm and dry Neurologic: moves all extremities and awake Psychiatric: Orientation: alert, oriented to person and cooperative Results & Data Results & Data ([facility]) Vital Signs (Past 12 Hours) Vital Signs Temp Pulse Resp BP Pulse Ox 09/16/20 07:18 117 H 18 93 09/16/20 07:00 36.6 C 67 20 137/77 93 PG Care Time/CCT Total # of Minutes Spent Total Time Spent with Patient: Total time spent is greater than 50% in coordination of care (as documented) at patient's floor/unit and/or counseling patient: Coding Level of Care Code 93192 Subseq Hosp Care Lvl 2 Diagnoses Pneumonia J18.9 Laterality: left Lung location: upper lobe of lung Pneumonia type: due to unspecified organism Asthma J45.909 Obesity E66.01; Z68.43 Obesity type: due to excess calories Obesity classification: adult class 3 (BMI >= 40) Serious obesity comorbidity presence: unspecified whether serious comorbidity present Body mass index: BMI 50.0-59.9 HTN (hypertension) I10 (1) Pneumonia Laterality: left Lung location: upper lobe of lung Pneumonia type: due to unspecified organism Qualified Code(s): J18.9 - Pneumonia, unspecified organism (2) Obesity Obesity type: due to excess calories Obesity classification: adult class 3 (BMI >= 40) Serious obesity comorbidity presence: unspecified whether serious comorbidity present Body mass index: BMI 50.0-59.9 Qualified Code(s): E66.01 - Morbid (severe) obesity due to excess calories; Z68.43 - Body mass index [BMI] 50.0-59.9, adult
[2020-09-16] MEDS: guaiFENesin 600 MG TABCR PO SCH ×2 (15:03→21:23)
--- NOTE | 2020-09-16 20:20 | Billing Data ---
Date of Service September 16, 2020 Coding Level of Care Code 15272 Initial Inpt Care Lvl 3
[2020-09-16] MEDS: AZITHROMYCIN 250 MG TAB PO SCH (21:23)
[2020-09-16] MEDS: cefTRIAXone SODIUM 2,000 MG in DEXTROSE 5% 50 ML IV SCH (21:23)
[2020-09-16] MEDS: MELATONIN 3 MG TAB PO PRN (22:18)
[2020-09-17] MEDS: ALBUTEROL 0.083% NEBU SOLN 3 ML VIAL NEB SCH ×4 (00:52→19:32)
[2020-09-17] MEDS: methylPREDNISolone 40 MG in SYRINGE 0 ML IV SCH ×3 (01:09→19:47)
[2020-09-17 06:46] LABS: Basophils # (auto) 0.01 K/uL (0-0.2); Basophils % (auto) 0.1 %; Hematocrit (blood only) 41.3 % (37-47); Hemoglobin 13.6 g/dL (12.0-16.0); Immature Granulocytes # (auto) 0.09 K/uL (0.00-0.02); Immature Granulocytes % (auto) 0.5 %; Lymphocytes # (auto) 1.59 K/uL (1.2-3.4); Lymphocytes % (auto) 9.1 %; Mean Corpuscular Hemoglobin 29.4 pg (25-34); Mean Corpuscular Hgb Conc 32.9 g/dL (32-36); Mean Corpuscular Volume 89.4 fL (80-100); Mean Platelet Volume 10.8 fL (7.4-10.4); Monocytes % (auto) 2.8 %; Neutrophils # (auto) 15.37 K/uL (1.4-6.5); Neutrophils % (auto) 87.5 %; Platelet Count 317 K/uL (130-400); RDW Coefficient of Variation 15.1 % (11.5-14.5); RDW Standard Deviation 50.1 fL (36.4-46.3); Red Blood Count 4.62 M/uL (4.2-5.4); White Blood Count 17.56 K/uL (4.8-10.8)
[2020-09-17 07:23] LABS: BUN Creatinine Ratio 26.6 (10-20); Calcium 9.2 mg/dl (8.5-10.1); Creatinine Clr Calc Pharmacy 156.2 ml/min; Est GFR (African American) 115.3 ml/min; Est GFR (Non-African American) 99.5 ml/min; Magnesium 2.2 mg/dl (1.8-2.4); Potassium 3.9 mmol/L (3.5-5.1)
[2020-09-17] MEDS: guaiFENesin 600 MG TABCR PO SCH ×2 (07:58→21:59)
[2020-09-17] MEDS: hydroCHLOROthiazide 25 MG TAB PO SCH (07:59)
[2020-09-17] MEDS: DULoxetine HCL 60 MG CAP PO SCH (07:59)
--- NOTE | 2020-09-17 09:20 | Hospitalist Progress Note ---
Date of Service September 17, 2020 Assessment & Plan (1) Pneumonia: Plan: with her dyspnea and ground glass opacities in the upper lobes, however mild with sputum production and hypoxia will cover for for CAP and atypical - CAP- Rocephin with Azithromycin for atypical - Legionella antigen sent Bio fire 12 sent - COVID negative with COVID vaccinated - Influenza negative - If no improvement consider adding RSV - Patient denies any travel - WBC remains stubbornly elevated to 17,000 range - ESR-54, CRP 0.7, procalcitonin negative (2) Asthma: Plan: As - exacerbation in the setting of viral vs. bacterial infection - Continue inhalers scheduled with prn in between - Methylpred 40 iv q8 (3) Obesity: Plan: Morbid obesity Continue with weight loss efforts as outpatient (4) HTN (hypertension): Plan: Contine with HCTZ - Goal <140 continue with PCP Admission and Anticipated Discharge Date Admission Date: September 15, 2020 Subjective Patient still with some expiratory wheezes Polo concerned about a pulmonary condition as she feels that we have not diagnosed anything but ruled out many things. Subsequently we will get a bio fire as she does not appear to have necessarily a lobar bacterial pneumonia if anything could be an atypical pneumonia given the groundglass appearance on the CT imaging. Having lost her smell or taste not having any diarrhea at the present time Review of Systems Review of Systems: Mild distress and fatigue no headache, no visual changes no speech or swallowing issues no chest pain, pressure or palpitations Cough productive of clear sputum shortness of breath dyspnea at rest and wheezing reported by the patient no abdominal pain, nausea or vomiting, diarrhea or constipation no dysuria, hematuria or frequency no focal joint pain or swelling no back pain, CVA tenderness or radicular pain no bruising, bleeding or rashes no focal signs of weakness or numbness or altered sensation no complaints of anxiety or depression.. Physical Exam Physical Exam: The patient appeared well nourished and normally developed. Patient is morbidly obese Vital signs as documented. Head exam is normocephalic atraumatic Neck is without JVD, thyromegaly, or carotid bruits. Lungs are clear to auscultation however she was just examined after a nebulizer treatment. She does have a nonproductive cough, no focal loss of breath sounds Cardiac exam, Rhythm is regular.. No murmurs, rubs or gallops. Abdominal exam reveals normal bowel sounds, soft non tender, no masses Extremities are nonedematous and both pedal pulses are present Neurologic exam is alert and oriented, no focal loss of strength or sensation Skin is without bruises or rashes Psychologically is without concerns for anxiety or depression Results & Data Results & Data ([facility]) Vital Signs (Past 12 Hours) Vital Signs Temp Pulse Resp BP Pulse Ox 09/17/20 08:02 90 20 92 09/17/20 07:25 97.9 F 74 16 143/81 H 91 09/17/20 00:54 92 H 18 89 L 09/16/20 22:46 98.1 F 81 16 152/89 H 92 PG Care Time/CCT Total # of Minutes Spent Total Time Spent with Patient: Total time spent is greater than 50% in coordination of care (as documented) at patient's floor/unit and/or counseling patient: Coding Level of Care Code 98252 Subseq Hosp Care Lvl 2 Diagnoses Pneumonia J18.9 Laterality: left Lung location: upper lobe of lung Pneumonia type: due to unspecified organism Asthma J45.909 Obesity E66.01; Z68.43 Body mass index: BMI 50.0-59.9 Obesity classification: adult class 3 (BMI >= 40) Obesity type: due to excess calories Serious obesity comorbidity presence: unspecified whether serious comorbidity present HTN (hypertension) I10 (1) Pneumonia Laterality: left Lung location: upper lobe of lung Pneumonia type: due to unspecified organism Qualified Code(s): J18.9 - Pneumonia, unspecified organism (2) Obesity Body mass index: BMI 50.0-59.9 Obesity classification: adult class 3 (BMI >= 40) Obesity type: due to excess calories Serious obesity comorbidity presence: unspecified whether serious comorbidity present Qualified Code(s): E66.01 - Morbid (severe) obesity due to excess calories; Z68.43 - Body mass index [BMI] 50.0-59.9, adult
[2020-09-17] MEDS: FLUTICASONE/VILANTEROL 200/25MCG 14 PUFFS/INHALER INH SCH (09:59)
[2020-09-17] MEDS: UMECLIDINIUM BROMIDE 62.5MCG/BLISTER 7 PUFFS/INHALER INH SCH (09:59)
[2020-09-17] MEDS: ACETAMINOPHEN 500 MG TAB PO PRN (13:31)
[2020-09-17 19:24] LABS: Adenovirus PCR Not Detected (NotDetected); Bordetella parapertussis PCR Not Detected (NotDetected); Bordetella pertussis PCR Not Detected (NotDetected); Chlamydia pneumoniae PCR Not Detected (NotDetected); Coronavirus 229E PCR Not Detected (NotDetected); Coronavirus CoV-2 (COVID19)PCR Not Detected (NotDetected); Coronavirus HKU1 PCR Not Detected (NotDetected); Coronavirus NL63 PCR Not Detected (NotDetected); Coronavirus OC43PCR Not Detected (NotDetected); Human Metapneumovirus PCR Not Detected (NotDetected); Influenza A PCR Not Detected (NotDetected); Influenza B PCR Not Detected (NotDetected); Mycoplasma pneumoniae PCR Not Detected (NotDetected); Parainfluenza Virus 1 PCR Not Detected (NotDetected); Parainfluenza Virus 2 PCR Not Detected (NotDetected); Parainfluenza Virus 3 PCR Not Detected (NotDetected); Parainfluenza Virus 4 PCR Not Detected (NotDetected); Respiratory Syncytial VirusPCR Not Detected (NotDetected)
[2020-09-17 19:33] LABS: Rhinovirus/Enterovirus PCR DETECTED (NotDetected)
[2020-09-17] MEDS: AZITHROMYCIN 250 MG TAB PO SCH (21:59)
[2020-09-17] MEDS: MELATONIN 3 MG TAB PO PRN (21:59)
[2020-09-17] MEDS: cefTRIAXone SODIUM 2,000 MG in DEXTROSE 5% 50 ML IV SCH (22:00)
[2020-09-18] MEDS: methylPREDNISolone 40 MG in SYRINGE 0 ML IV SCH ×3 (01:10→17:11)
[2020-09-18] MEDS: ALBUTEROL 0.083% NEBU SOLN 3 ML VIAL NEB SCH ×4 (01:17→20:06)
[2020-09-18 08:08] LABS: Hematocrit (blood only) 43.3 % (37-47); Hemoglobin 14.1 g/dL (12.0-16.0); Immature Granulocytes # (auto) 0.14 K/uL (0.00-0.02); Immature Granulocytes % (auto) 0.9 %; Lymphocytes # (auto) 2.17 K/uL (1.2-3.4); Lymphocytes % (auto) 13.9 %; Mean Corpuscular Hemoglobin 29.3 pg (25-34); Mean Corpuscular Hgb Conc 32.6 g/dL (32-36); Mean Platelet Volume 10.3 fL (7.4-10.4); Monocytes # (auto) 0.58 K/uL (0.11-0.59); Monocytes % (auto) 3.7 %; Neutrophils # (auto) 12.73 K/uL (1.4-6.5); Neutrophils % (auto) 81.5 %; Platelet Count 321 K/uL (130-400); RDW Standard Deviation 49.6 fL (36.4-46.3); Red Blood Count 4.81 M/uL (4.2-5.4); White Blood Count 15.62 K/uL (4.8-10.8)
[2020-09-18 08:28] LABS: BUN Creatinine Ratio 30.3 (10-20); Calcium 9.3 mg/dl (8.5-10.1); Creatinine Clr Calc Pharmacy 158.4 ml/min; Est GFR (African American) 117.2 ml/min; Est GFR (Non-African American) 101.1 ml/min; Magnesium 2.3 mg/dl (1.8-2.4); Potassium 4.1 mmol/L (3.5-5.1)
[2020-09-18] MEDS: FLUTICASONE/VILANTEROL 200/25MCG 14 PUFFS/INHALER INH SCH (09:35)
[2020-09-18] MEDS: DULoxetine HCL 60 MG CAP PO SCH (09:35)
[2020-09-18] MEDS: UMECLIDINIUM BROMIDE 62.5MCG/BLISTER 7 PUFFS/INHALER INH SCH (09:36)
[2020-09-18] MEDS: hydroCHLOROthiazide 25 MG TAB PO SCH (09:36)
[2020-09-18] MEDS: guaiFENesin 600 MG TABCR PO SCH ×2 (09:36→20:25)
[2020-09-18] MEDS: ACETAMINOPHEN 500 MG TAB PO PRN (17:08)
--- NOTE | 2020-09-18 17:33 | Hospitalist Progress Note ---
Date of Service September 18, 2020 Assessment & Plan (1) Pneumonia: Plan: with her dyspnea and ground glass opacities in the upper lobes, however mild with sputum production and hypoxia did cover for for CAP and atypical - CAP- Rocephin with Azithromycin for atypical, since now viral will only complete azithro to help with pulm inflamatory issues and stop rocephin - Legionella antigen pending - Bio fire 12 shows entero/rhino virus - COVID negative with COVID vaccinated - Influenza negative - - WBC remains stubbornly elevated to 17,000 range - ESR-54, CRP 0.7, procalcitonin negative (2) Asthma: Plan: As - exacerbation in the setting of viral vs. bacterial infection - Continue inhalers scheduled with prn in between - Methylpred 40 iv q8-> transition to po prednisone 09/19 (3) Obesity: Plan: Morbid obesity Continue with weight loss efforts as outpatient (4) HTN (hypertension): Plan: Contine with HCTZ - Goal <140 continue with PCP one dose of lasix on 09/18 to help if some volume over load Admission and Anticipated Discharge Date Admission Date: September 15, 2020 Subjective Patient still with some expiratory wheezes A respiratory bio fire confirms viral pneumonia, consistent with her groundglass appearance on the CT imaging. entero/Rhinovirus was seen on Biofire Review of Systems Review of Systems: Mild distress and fatigue no headache, no visual changes no speech or swallowing issues no chest pain, pressure or palpitations Cough productive of clear sputum shortness of breath dyspnea at rest and wheezing reported by the patient, improved after neb no abdominal pain, nausea or vomiting, diarrhea or constipation no dysuria, hematuria or frequency no focal joint pain or swelling no back pain, CVA tenderness or radicular pain no bruising, bleeding or rashes no focal signs of weakness or numbness or altered sensation no complaints of anxiety or depression.. Physical Exam Physical Exam: The patient appeared well nourished and normally developed. Patient is morbidly obese Vital signs as documented. Head exam is normocephalic atraumatic Neck is without JVD, thyromegaly, or carotid bruits. Lungs are clear to auscultation however she was just examined after a nebulizer treatment. She does have a nonproductive cough, no focal loss of breath sounds Cardiac exam, Rhythm is regular.. No murmurs, rubs or gallops. Abdominal exam reveals normal bowel sounds, soft non tender, no masses Extremities are nonedematous and both pedal pulses are present Neurologic exam is alert and oriented, no focal loss of strength or sensation Skin is without bruises or rashes Psychologically is without concerns for anxiety or depression Results & Data Results & Data ([facility]) Vital Signs (Past 12 Hours) Vital Signs Temp Pulse Resp BP Pulse Ox 09/18/20 13:27 79 18 89 L 09/18/20 07:41 77 18 92 09/18/20 05:51 97.9 F 82 16 141/85 H 92 PG Care Time/CCT Total # of Minutes Spent Total Time Spent with Patient: Total time spent is greater than 50% in coordination of care (as documented) at patient's floor/unit and/or counseling patient: Coding Level of Care Code 98268 Subseq Hosp Care Lvl 2 Diagnoses Pneumonia J18.9 Laterality: left Lung location: upper lobe of lung Pneumonia type: due to unspecified organism Asthma J45.909 Obesity E66.01; Z68.43 Obesity type: due to excess calories Obesity classification: adult class 3 (BMI >= 40) Serious obesity comorbidity presence: unspecified whether serious comorbidity present Body mass index: BMI 50.0-59.9 HTN (hypertension) I10 (1) Pneumonia Laterality: left Lung location: upper lobe of lung Pneumonia type: due to unspecified organism Qualified Code(s): J18.9 - Pneumonia, unspecified organism (2) Obesity Obesity type: due to excess calories Obesity classification: adult class 3 (BMI >= 40) Serious obesity comorbidity presence: unspecified whether serious comorbidity present Body mass index: BMI 50.0-59.9 Qualified Code(s): E66.01 - Morbid (severe) obesity due to excess calories; Z68.43 - Body mass index [BMI] 50.0-59.9, adult
[2020-09-18] MEDS ORDERED: FUROSEMIDE 20 MG in SYRINGE 0 ML IV ONE (17:45)
[2020-09-18] MEDS: AZITHROMYCIN 250 MG TAB PO SCH (20:25)
[2020-09-19] MEDS: ALBUTEROL 0.083% NEBU SOLN 3 ML VIAL NEB SCH ×4 (00:20→19:41)
[2020-09-19] MEDS: UMECLIDINIUM BROMIDE 62.5MCG/BLISTER 7 PUFFS/INHALER INH SCH (08:42)
[2020-09-19] MEDS: predniSONE 20 MG TAB PO SCH (08:43)
[2020-09-19] MEDS: FLUTICASONE/VILANTEROL 200/25MCG 14 PUFFS/INHALER INH SCH (08:43)
[2020-09-19] MEDS: DULoxetine HCL 60 MG CAP PO SCH (08:46)
[2020-09-19] MEDS: hydroCHLOROthiazide 25 MG TAB PO SCH (08:46)
[2020-09-19] MEDS: guaiFENesin 600 MG TABCR PO SCH ×2 (08:46→19:59)
[2020-09-19] MEDS ORDERED: FUROSEMIDE 20 MG in SYRINGE 0 ML IV ONE (10:15)
--- NOTE | 2020-09-19 13:44 | Hospitalist Progress Note ---
Date of Service September 19, 2020 Assessment & Plan (1) Pneumonia: Plan: with her dyspnea and ground glass opacities in the upper lobes, however mild with sputum production and hypoxia did cover for for CAP and atypical - CAP- initially on Rocephin with Azithromycin for atypical, now known to be viral will only complete azithromycin - Bio fire 12 shows entero/rhino virus - COVID negative with COVID vaccinated - Influenza negative check WBC, ESR, CRP tomorrow on Prednisone 40mg daily, taper slowly (2) Acute respiratory failure with hypoxia: Plan: due to viral pneumonia supportive care, wean oxygen as tolerated might need two step tomorrow (3) Asthma: Plan: As - exacerbation in the setting of viral vs. bacterial infection - Continue inhalers scheduled with prn in between - Methylpred 40 iv q8-> transition to po prednisone 40mg daily today, slow taper (4) Obesity: Plan: Morbid obesity Continue with weight loss efforts as outpatient (5) HTN (hypertension): Plan: Contine with HCTZ - Goal <140 continue with PCP continue Lasix 20mg PO qAM for now Admission and Anticipated Discharge Date Admission Date: September 15, 2020 Subjective patient admits to feeling better, coming along slowly she says she felt a lot better after Lasix yesterday, requested an additional dose, Cr stable she is breathing well at rest, gets dyspnea on exertion, no oxygen needed at rest but sats drop to 85% on exertion discussed potential for d/c tomorrow, she is open to that eating well, making urine, moving bowels + cough, + wheezing at times Review of Systems Review of Systems: All systems reviewed & are unremarkable except as noted in Subjective Physical Exam Constitutional: well developed, well nourished, + obese and comfortable; no acute distress Neck: trachea midline, no thyromegaly Respiratory: normal respiratory effort and + cough; no respiratory distress and no labored breathing Auscultation: + crackles; no rales, no rhonchi and no wheezes Cardiovascular: RRR, no murmur, no edema Gastrointestinal (Abdomen): normal bowel sounds, soft, nontender, no hepatosplenomegaly Musculoskeletal: no cyanosis or clubbing, extremities motor strength 5/5 Skin: no rashes, warm and dry Neurologic: patellar DTR's 2+ bilat, sensation intact and PERRL, EOMI, accommodation nl, no face palsy, no dysarthria Psychiatric: A+Ox3, euthymic affect Results & Data Results & Data ([facility]) Vital Signs (Past 12 Hours) Vital Signs Temp Pulse Pulse Resp BP Pulse Ox 09/19/20 13:17 84 18 94 09/19/20 07:52 74 18 94 09/19/20 06:59 36.6 C 64 18 165/104 H 95 Laboratory Results Laboratory Results - last 24 hr 09/15/20 23:23 Urine Legionella Ag SEE NOTE Medications Administered Current Inpatient Medications Acetaminophen (Acetaminophen 500 Mg Tab) 1,000 mg PO Q6H PRN PRN Reason: pain/fever Stop: 10/15/20 21:52 Last Admin: 09/18/20 17:08 Dose: 1,000 mg Documented by: Albuterol (Albuterol Hfa 8 Gm Inhaler) 2 puffs INH Q4H PRN PRN Reason: Shortness Of Breath Stop: 10/15/20 21:52 Albuterol (Albuterol 0.083% Nebu Soln 3 Ml Vial) 2.5 mg NEB Q6R DOMINIQUE Stop: 10/16/20 00:59 Last Admin: 09/19/20 19:41 Dose: 2.5 mg Documented by: Azithromycin (Azithromycin 250 Mg Tab) 250 mg PO HS DOMINIQUE Stop: 09/23/20 20:59 Last Admin: 09/19/20 19:59 Dose: 250 mg Documented by: Diclofenac Sodium (Diclofenac Sodium 75 Mg Tabcr) 75 mg PO BID PRN PRN Reason: Pain Stop: 10/15/20 21:52 Duloxetine HCl (Duloxetine Hcl 60 Mg Cap) 60 mg PO DAILY DOMINIQUE Stop: 10/16/20 08:59 Last Admin: 09/19/20 08:46 Dose: 60 mg Documented by: Fluticasone/Vilanterol (Fluticasone/Vilanterol 200/25mcg 14 Puffs/Inhaler) 1 puffs INH DAILY DOMINIQUE Stop: 10/16/20 08:59 Last Admin: 09/19/20 08:43 Dose: 1 puffs Documented by: Furosemide (Furosemide 20 Mg Tab) 20 mg PO QAM DOMINIQUE Stop: 10/20/20 08:59 Guaifenesin (Guaifenesin 600 Mg Tabcr) 600 mg PO Q12 DOMINIQUE Stop: 10/16/20 13:09 Last Admin: 09/19/20 19:59 Dose: 600 mg Documented by: Hydrochlorothiazide (Hydrochlorothiazide 25 Mg Tab) 25 mg PO DAILY DOMINIQUE Stop: 10/16/20 08:59 Last Admin: 09/19/20 08:46 Dose: 25 mg Documented by: Melatonin (Melatonin 3 Mg Tab) 21 mg PO HS PRN PRN Reason: Sleep Stop: 10/15/20 23:20 Last Admin: 09/17/20 21:59 Dose: 21 mg Documented by: Prednisone (Prednisone 20 Mg Tab) 40 mg PO DAILY DOMINIQUE Stop: 10/19/20 08:59 Last Admin: 09/19/20 08:43 Dose: 40 mg Documented by: Umeclidinium [place] (Umeclidinium [place] 62.5mcg/Blister 7 Puffs/Inhaler) 1 puffs INH DAILY DOMINIQUE Stop: 10/16/20 08:59 Last Admin: 09/19/20 08:42 Dose: 1 puffs Documented by: PG Care Time/CCT Total # of Minutes Spent Total Time Spent with Patient: Total time spent is greater than 50% in coordination of care (as documented) at patient's floor/unit and/or counseling patient: Coding Level of Care Code 88179 Subseq Hosp Care Lvl 2 Diagnoses Pneumonia J18.9 Laterality: left Lung location: upper lobe of lung Pneumonia type: due to unspecified organism Asthma J45.909 Obesity E66.01; Z68.43 Body mass index: BMI 50.0-59.9 Obesity classification: adult class 3 (BMI >= 40) Obesity type: due to excess calories Serious obesity comorbidity presence: unspecified whether serious comorbidity present HTN (hypertension) I10 Acute respiratory failure with hypoxia J96.01 (1) Pneumonia Laterality: left Lung location: upper lobe of lung Pneumonia type: due to unspecified organism Qualified Code(s): J18.9 - Pneumonia, unspecified organism (2) Obesity Body mass index: BMI 50.0-59.9 Obesity classification: adult class 3 (BMI >= 40) Obesity type: due to excess calories Serious obesity comorbidity presence: unspecified whether serious comorbidity present Qualified Code(s): E66.01 - Morbid (severe) obesity due to excess calories; Z68.43 - Body mass index [BMI] 50.0-59.9, adult
[2020-09-19] MEDS: AZITHROMYCIN 250 MG TAB PO SCH (19:59)
[2020-09-20] MEDS: ALBUTEROL 0.083% NEBU SOLN 3 ML VIAL NEB SCH ×4 (00:31→19:19)
[2020-09-20 07:17] LABS: Hematocrit (blood only) 43.9 % (37-47); Hemoglobin 14.5 g/dL (12.0-16.0); Mean Corpuscular Hemoglobin 28.8 pg (25-34); Mean Corpuscular Volume 87.3 fL (80-100); Mean Platelet Volume 10.4 fL (7.4-10.4); Platelet Count 287 K/uL (130-400); RDW Coefficient of Variation 14.8 % (11.5-14.5); RDW Standard Deviation 46.9 fL (36.4-46.3); Red Blood Count 5.03 M/uL (4.2-5.4); White Blood Count 14.79 K/uL (4.8-10.8)
[2020-09-20 07:44] LABS: Basophils # (auto) 0.02 K/uL (0-0.2); Basophils % (auto) 0.1 %; Eosinophils # (auto) 0.06 K/uL (0-0.5); Eosinophils % (auto) 0.4 %; Immature Granulocytes # (auto) 0.15 K/uL (0.00-0.02); Lymphocytes % (auto) 41.9 %; Monocytes % (auto) 7.4 %; Neutrophils # (auto) 7.26 K/uL (1.4-6.5); Neutrophils % (auto) 49.2 %
[2020-09-20 07:56] LABS: BUN Creatinine Ratio 30.2 (10-20); C Reactive Protein 0.85 mg/dl (0-0.29); Calcium 8.7 mg/dl (8.5-10.1); Creatinine Clr Calc Pharmacy 144.3 ml/min; Est GFR (African American) 104.8 ml/min; Est GFR (Non-African American) 90.4 ml/min
[2020-09-20] MEDS: UMECLIDINIUM BROMIDE 62.5MCG/BLISTER 7 PUFFS/INHALER INH SCH (09:04)
[2020-09-20] MEDS: FUROSEMIDE 20 MG TAB PO SCH (09:04)
[2020-09-20] MEDS: FLUTICASONE/VILANTEROL 200/25MCG 14 PUFFS/INHALER INH SCH (09:05)
[2020-09-20] MEDS: guaiFENesin 600 MG TABCR PO SCH ×2 (09:05→21:32)
[2020-09-20] MEDS: DULoxetine HCL 60 MG CAP PO SCH (09:45)
[2020-09-20] MEDS: hydroCHLOROthiazide 25 MG TAB PO SCH (09:46)
[2020-09-20] MEDS: predniSONE 20 MG TAB PO SCH (09:46)
[2020-09-20] MEDS: POTASSIUM CHLORIDE CRTAB 20 MEQ TABCR PO SCH ×3 (09:46→21:34)
--- NOTE | 2020-09-20 17:11 | Hospitalist Progress Note ---
Date of Service September 20, 2020 Assessment & Plan (1) Pneumonia: Plan: with her dyspnea and ground glass opacities in the upper lobes, however mild with sputum production and hypoxia did cover for for CAP and atypical - CAP- initially on Rocephin with Azithromycin for atypical, now known to be viral will only complete azithromycin - Bio fire 12 shows entero/rhino virus - COVID negative with COVID vaccinated - Influenza negative WBC 14k, CRP down to 0.85 and ESR is 35, all trending down on Prednisone 40mg daily, taper slowly on discharge (2) Acute respiratory failure with hypoxia: Plan: due to viral pneumonia supportive care, wean oxygen as tolerated plan for two step tomorrow (3) Asthma: Plan: exacerbation in the setting of viral infection - Continue inhalers scheduled with prn in between - Methylpred 40 iv q8-> transition to po prednisone 40mg daily, slow taper (4) Obesity: Plan: Morbid obesity Continue with weight loss efforts as outpatient discussed healthy weight loss of 10-15% as first goal, less calories, more exercise (5) HTN (hypertension): Plan: Contine with HCTZ - Goal <140 continue with PCP continue Lasix 20mg PO qAM for now Admission and Anticipated Discharge Date Admission Date: September 15, 2020 Subjective patient says she is feeling so much better, she feels like the Lasix is helping a lot discussed that her ESR and CRP are going down, good response to Prednisone coughing less, feels less short of breath on exertion still noting that her saturations are dropping on room air, explained that this should be short lived will get two step tomorrow eating well, making urine, moving bowels excited to go home tomorrow Review of Systems Review of Systems: All systems reviewed & are unremarkable except as noted in Subjective Respiratory: + cough, + dyspnea and + dyspnea on exertion; no sputum production Cardiovascular: no chest pain, no palpitations, no syncope and no edema Physical Exam Constitutional: well developed, well nourished, + obese and comfortable; no acute distress Neck: trachea midline, no thyromegaly Respiratory: normal respiratory effort and + cough; no respiratory distress and no labored breathing Auscultation: no crackles, no rales, no rhonchi and no wheezes Cardiovascular: RRR, no murmur, no edema Gastrointestinal (Abdomen): normal bowel sounds, soft, nontender, no hepatosplenomegaly Musculoskeletal: no cyanosis or clubbing, extremities motor strength 5/5 Skin: no rashes, warm and dry Neurologic: patellar DTR's 2+ bilat, sensation intact and PERRL, EOMI, accommodation nl, no face palsy, no dysarthria Psychiatric: A+Ox3, euthymic affect Results & Data Results & Data ([facility]) Vital Signs (Past 12 Hours) Vital Signs Temp Pulse Pulse Resp BP Pulse Ox 09/20/20 15:42 36.8 C 98 H 18 137/87 94 09/20/20 13:27 88 18 95 09/20/20 07:40 36.7 C 83 18 151/94 H 93 09/20/20 07:39 83 18 93 Laboratory Results Laboratory Results - last 24 hr 09/20/20 09/20/20 09/20/20 06:57 06:57 06:57 WBC 14.79 H RBC 5.03 Hgb 14.5 Hct 43.9 MCV 87.3 MCH 28.8 MCHC 33.0 RDW Std Deviation 46.9 H RDW Coeff of Elsy 14.8 H Plt Count 287 MPV 10.4 Immature Gran % (Auto) 1.0 Neut % (Auto) 49.2 Lymph % (Auto) 41.9 [place] % (Auto) 7.4 Eos % (Auto) 0.4 Baso % (Auto) 0.1 Neut # (Auto) 7.26 H Lymph # (Auto) 6.20 H [place] # (Auto) 1.10 H Eos # (Auto) 0.06 Baso # (Auto) 0.02 Immature Gran # (Auto) 0.15 H ESR 35 H Sodium 136 Potassium 3.0 L D Chloride 98 Carbon Dioxide 30 Anion Gap 7.0 BUN 24 H Creatinine 0.79 Est Cr Clr Drug Dosing 144.3 Est GFR ( Amer) 104.8 Est GFR (Non-Af Amer) 90.4 BUN/Creatinine Ratio 30.2 H Glucose 85 Calcium 8.7 C-Reactive Protein 0.85 H Medications Administered Current Inpatient Medications Acetaminophen (Acetaminophen 500 Mg Tab) 1,000 mg PO Q6H PRN PRN Reason: pain/fever Stop: 10/15/20 21:52 Last Admin: 09/18/20 17:08 Dose: 1,000 mg Documented by: Albuterol (Albuterol Hfa 8 Gm Inhaler) 2 puffs INH Q4H PRN PRN Reason: Shortness Of Breath Stop: 10/15/20 21:52 Albuterol (Albuterol 0.083% Nebu Soln 3 Ml Vial) 2.5 mg NEB Q6R DOMINIQUE Stop: 10/16/20 00:59 Last Admin: 09/20/20 13:25 Dose: 2.5 mg Documented by: Azithromycin (Azithromycin 250 Mg Tab) 250 mg PO HS DOMINIQUE Stop: 09/23/20 20:59 Last Admin: 09/19/20 19:59 Dose: 250 mg Documented by: Diclofenac Sodium (Diclofenac Sodium 75 Mg Tabcr) 75 mg PO BID PRN PRN Reason: Pain Stop: 10/15/20 21:52 Duloxetine HCl (Duloxetine Hcl 60 Mg Cap) 60 mg PO DAILY DOMINIQUE Stop: 10/16/20 08:59 Last Admin: 09/20/20 09:45 Dose: 60 mg Documented by: Fluticasone/Vilanterol (Fluticasone/Vilanterol 200/25mcg 14 Puffs/Inhaler) 1 puffs INH DAILY DOMINIQUE Stop: 10/16/20 08:59 Last Admin: 09/20/20 09:05 Dose: 1 puffs Documented by: Furosemide (Furosemide 20 Mg Tab) 20 mg PO QAM DOMINIQUE Stop: 10/20/20 08:59 Last Admin: 09/20/20 09:04 Dose: 20 mg Documented by: Guaifenesin (Guaifenesin 600 Mg Tabcr) 600 mg PO Q12 DOMINIQUE Stop: 10/16/20 13:09 Last Admin: 09/20/20 09:05 Dose: 600 mg Documented by: Hydrochlorothiazide (Hydrochlorothiazide 25 Mg Tab) 25 mg PO DAILY DOMINIQUE Stop: 10/16/20 08:59 Last Admin: 09/20/20 09:46 Dose: 25 mg Documented by: Melatonin (Melatonin 3 Mg Tab) 21 mg PO HS PRN PRN Reason: Sleep Stop: 10/15/20 23:20 Last Admin: 09/17/20 21:59 Dose: 21 mg Documented by: Potassium Chloride (Potassium Chloride Crtab 20 Meq Tabcr) 20 meq PO TID DOMINIQUE Stop: 10/20/20 08:59 Last Admin: 09/20/20 13:38 Dose: 20 meq Documented by: Prednisone (Prednisone 20 Mg Tab) 40 mg PO DAILY DOMINIQUE Stop: 10/19/20 08:59 Last Admin: 09/20/20 09:46 Dose: 40 mg Documented by: Umeclidinium [place] (Umeclidinium [place] 62.5mcg/Blister 7 Puffs/Inhaler) 1 puffs INH DAILY DOMINIQUE Stop: 10/16/20 08:59 Last Admin: 09/20/20 09:04 Dose: 1 puffs Documented by: PG Care Time/CCT Total # of Minutes Spent Total Time Spent with Patient: Total time spent is greater than 50% in coordination of care (as documented) at patient's floor/unit and/or counseling patient: Coding Level of Care Code 40330 Subseq Hosp Care Lvl 2 Diagnoses Pneumonia J18.9 Laterality: left Lung location: upper lobe of lung Pneumonia type: due to unspecified organism Acute respiratory failure with hypoxia J96.01 Asthma J45.909 Obesity E66.01; Z68.43 Obesity type: due to excess calories Obesity classification: adult class 3 (BMI >= 40) Serious obesity comorbidity presence: unspecified whether serious comorbidity present Body mass index: BMI 50.0-59.9 HTN (hypertension) I10 (1) Pneumonia Laterality: left Lung location: upper lobe of lung Pneumonia type: due to unspecified organism Qualified Code(s): J18.9 - Pneumonia, unspecified organism (2) Obesity Obesity type: due to excess calories Obesity classification: adult class 3 (BMI >= 40) Serious obesity comorbidity presence: unspecified whether serious comorbidity present Body mass index: BMI 50.0-59.9 Qualified Code(s): E66.01 - Morbid (severe) obesity due to excess calories; Z68.43 - Body mass index [BMI] 50.0-59.9, adult
[2020-09-20] MEDS: MELATONIN 3 MG TAB PO PRN (21:34)
[2020-09-20] MEDS: AZITHROMYCIN 250 MG TAB PO SCH (21:34)
[2020-09-21] MEDS: ALBUTEROL 0.083% NEBU SOLN 3 ML VIAL NEB SCH ×2 (00:28→08:01)
[2020-09-21] MEDS: FLUTICASONE/VILANTEROL 200/25MCG 14 PUFFS/INHALER INH SCH (08:49)
[2020-09-21] MEDS: guaiFENesin 600 MG TABCR PO SCH (08:49)
[2020-09-21] MEDS: DULoxetine HCL 60 MG CAP PO SCH (08:49)
[2020-09-21] MEDS: FUROSEMIDE 20 MG TAB PO SCH (08:50)
[2020-09-21] MEDS: hydroCHLOROthiazide 25 MG TAB PO SCH (08:50)
[2020-09-21] MEDS: predniSONE 20 MG TAB PO SCH (08:51)
[2020-09-21] MEDS: UMECLIDINIUM BROMIDE 62.5MCG/BLISTER 7 PUFFS/INHALER INH SCH (08:51)
[2020-09-21] MEDS: POTASSIUM CHLORIDE CRTAB 20 MEQ TABCR PO SCH (08:51)
--- NOTE | 2020-09-21 11:33 | Discharge Summary ---
Date of Service September 21, 2020 Admission HPI Per Admitting Provider 44 YOF with past medical history of: Asthma, obesity, anxiety/depression, HTN. Patient comes in to the ED today at the referral from her PCP secondary to dyspnea and further evaluation. Patient reports that originally she felt she had a cold about a 3-5 days ago that consisted of chills, congestion, cough. She continued to remain with a cough and dyspnea and went to [facility] where she reports she had a COVID test performed and it was negative. She was started with nebulizers, given Decadron, magnesium, and started on Augmentin. The patient reports that she remained conversationally dyspneic and trouble catching her breath and continued cough. Her PCP ordered a CT scan that was performed here and then referred her to the ER for ground-glass opacities noted noted in upper lobes without cavitation. In the EMD the patient was given 125mg of IV solumederol and started on Unasyn and given a nebulizer of albuterol. The patient continued to be dyspneic. Hospitalist team was notified for admission. Patient states that she feels better than she did this morning in regards to her breathing and wheezing. She is able to talk in full sentences now. Patient will be admitted for treatment of pneumonia and continue work-up. She has had blood cultures drawn, continue steroids as she was on 60mg Prednisone as outpatient. She endorses using her inhalers. She has a dog and cat, denies any tick bites or travel. Patient does have her COVID vaccine and is NEGATIVE on her COVID test on admission. Principal Diagnosis Viral pneumonia, asthma exacerbation Discharge Exam Constitutional well developed, well nourished, + obese and comfortable; no acute distress Neck trachea midline, no thyromegaly Respiratory normal respiratory effort and + cough; no respiratory distress and no labored breathing Auscultation: no crackles, no rales, no rhonchi and no wheezes Cardiovascular RRR, no murmur, no edema Gastrointestinal (Abdomen) normal bowel sounds, soft, nontender, no hepatosplenomegaly Musculoskeletal no cyanosis or clubbing, extremities motor strength 5/5 Skin no rashes, warm and dry Neurologic patellar DTR's 2+ bilat, sensation intact and PERRL, EOMI, accommodation nl, no face palsy, no dysarthria Psychiatric A+Ox3, euthymic affect Discharge Data Allergies Allergy/AdvReac Type Severity Reaction Status Date / Time Penicillins AdvReac Intermediate NAUSEATED Verified 09/15/20 18:24 Consultations 09/15/20 19:38 ED Decision to Admit Stat Hospital Course (1) Pneumonia: with her dyspnea and ground glass opacities in the upper lobes, however mild with sputum production and hypoxia did cover for for CAP and atypical - CAP- initially on Rocephin with Azithromycin for atypical, now known to be viral will only complete azithromycin - Bio fire 12 shows entero/rhino virus - COVID negative with COVID vaccinated - Influenza negative CRP down to 0.85 and ESR is 35, all trending down on Prednisone 40mg daily, taper to 30mg on discharge and follow instructions for taper follow up with PCP (2) Acute respiratory failure with hypoxia: due to viral pneumonia supportive care, wean oxygen as tolerated two step on day of discharge showed that no oxygen needed (3) Asthma: exacerbation in the setting of viral infection - Continue inhalers scheduled with prn in between - Methylpred 40 iv q8-> transition to po prednisone 40mg daily, slow taper prescribed Duoneb, she already purchased home nebulizer (4) Obesity: Morbid obesity Continue with weight loss efforts as outpatient discussed healthy weight loss of 10-15% as first goal, less calories, more exercise (5) HTN (hypertension): Contine with HCTZ - Goal <140 continue with PCP continue Lasix 20mg PO qAM while on the Prednisone can discuss further use of Lasix with PCP, she says she feels better while taking it give daily potassium while on Lasix Total Time Total Time Spent Total Time Spent (In Minutes): 35 Discharge Plan Discharge Items Patient Disposition: Home - Self-Care Reason For Visit: DYSPNEA Discharge Diagnosis: Viral pneumonia Asthma exacerbation Acute hypoxic respiratory failure Condition on Discharge: Good Goals: complete Prednisone taper Activity: Resume your previous activity Driving/Machine Use: No limitations Weightbearing: Full weightbearing Non-emergency contact: Primary Care Provider Call non-emergency contact if: you have any medication questions and your symptoms worsen Follow-up/Referrals: Brendan Dobbs [Primary Care Provider] - (Office will call with appointment date and time) Diet: Low Fat Ambulatory Orders: Basic Metabolic Panel (Routine) Timeframe: 20200926 Location: Determined by Patient Ordered By: Zi Alfonso Attending Provider Instructions: Medications: - PREDNISONE: complete taper over the next 10 days, take 30mg daily x 3 days then 20mg daily x 3 days then 10mg daily x 4 days then stop - LASIX: 20mg daily for 10 days while on the steroids, discuss further dosing with PCP - POTASSIUM: 20mEq daily with the Lasix - MUCINEX: over the counter, take 600mg twice a day for 10 days Viral pneumonia, asthma exacerbation, acute hypoxia biofire panel was positive for Rhinovirus, this is cause of pneumonia responded well to steroids, will taper on Prednisone use nebulizer as needed continue maintenance inhalers follow up with PCP Hypertension: stable, good response to Lasix, can continue this while on Prednisone unsure if you need this auth specialist, hydrochlorothiazide is an appropriate first line therapy for hypertension discuss with PCP gave you script, get labs checked on Tuesday 09/26 no need for oxygen based on 2 step testing today, you should only continue to improve as we discussed, slowly increase your physical activity, would expect you to be feeling back to normal in 1-2 weeks Pending Studies at Discharge: No Stand-Alone Forms: My [facility], Smoking Cessation Medications and DC Order Prescriptions: New (DME) nebulizer and compressor Device See Rx Instructions .Route Qty: 1 RF: 0 albuterol sulfate 2.5 mg /3 mL (0.083 %) Solution For Nebulization 2.5 mg NEB Q6R PRN (Reason: shortness of breath or wheezing) 10 Days Qty: 90 RF: 3 potassium chloride [Klor-Con M20] 20 mEq Tablet,Er Particles/Crystals 20 meq PO DAILY 10 Days Qty: 10 RF: 0 furosemide 20 mg Tablet 20 mg PO QAM 10 Days Qty: 10 RF: 0 guaifenesin [Mucinex] 600 mg Tablet Extended Release 12hr 600 mg PO Q12 10 Days Qty: 20 RF: 0 prednisone 10 mg tablet 10 mg PO UD 10 Days Qty: 19 RF: 0 Continued albuterol sulfate 90 mcg/actuation HFA aerosol inhaler 2 puff inhalation Q4H PRN (Reason: Shortness Of Breath) RF: 0 diclofenac sodium 75 mg tablet,delayed release (DR/EC) 75 mg PO BID PRN (Reason: Pain) RF: 0 hydrochlorothiazide 25 mg tablet 25 mg PO DAILY RF: 0 duloxetine 60 mg capsule,delayed release(DR/EC) 60 mg PO DAILY RF: 0 Dulera 200-5 mcg/actuation HFA aerosol inhaler 2 puff INHALATION BID RF: 0 Spiriva Respimat 2.5 mcg/actuation mist 2 puff INHALATION DAILY RF: 0 Discontinued prednisone 20 mg tablet 60 mg PO DAILY RF: 0 amoxicillin-pot clavulanate 875-125 mg tablet 1 tab PO BID RF: 0 Discharge Orders: Discharge Order (Routine); Ordered 09/21/20 Ordered By: Zi Olivo Admission Data Admit Date/Time: 09/15/20 20:24 Attending Provider: Zi Olivo Admit Provider: Tom Lopez Primary Care Provider: Brendan Dobbs Other Providers: Rahat Sheldon Other Interventions: Discharge Summary Assessment (RN) Last Done: 09/21/20 11:36 Coding Level of Care Code D/C DAY MANAGEMENT >30 MINS Diagnoses Pneumonia J18.9 Laterality: left Lung location: upper lobe of lung Pneumonia type: due to unspecified organism Acute respiratory failure with hypoxia J96.01 Asthma J45.909 Obesity E66.01; Z68.43 Body mass index: BMI 50.0-59.9 Obesity classification: adult class 3 (BMI >= 40) Obesity type: due to excess calories Serious obesity comorbidity presence: unspecified whether serious comorbidity present HTN (hypertension) I10
== END 2020-09-21 12:54 | disposition home or self-care (01) | DRG 193 ==
LOC: ED 15:44 → 3E 20:24 → SUATTDRO 20:24 → 3E 21:22
DX: F17.210 Nicotine dependence, cigarettes, uncomplicated; F32.9 Major depressive disorder, single episode, unspecified; J96.01 Acute respiratory failure with hypoxia; J45.901 Unspecified asthma with (acute) exacerbation; B97.10 Unspecified enterovirus as the cause of diseases classified elsewhere; Z79.899 Other long term (current) drug therapy; E66.01 Morbid (severe) obesity due to excess calories; F41.9 Anxiety disorder, unspecified; B97.89 Other viral agents as the cause of diseases classified elsewhere; Z68.43 Body mass index [BMI] 50.0-59.9, adult; I10 Essential (primary) hypertension; J12.89 Other viral pneumonia; Z20.822 Contact with and (suspected) exposure to COVID-19; Z88.0 Allergy status to penicillin